=== PATIENT | male | born 1990 | race Caucasian/White ===

== ENCOUNTER 2019-08-12 06:04 | Emergency (ER) | payer MEDICAID, OTHER ==
[~2019-08-12] VITALS: Ht 188 cm; Wt 86.2 kg
[~2019-08-12 06:04] MED LIST: AMOX-426 PO; DIF100 PO; SACC250C3 PO
[2019-08-12 06:10] VITALS: BP_SYST 152
[2019-08-12 07:16] VITALS: BP_SYST 140
== END 2019-08-12 07:14 | disposition home or self-care (01) ==
LOC: SED 06:04
DX: K02.9 Dental caries, unspecified (principal); K08.89 Other specified disorders of teeth and supporting structures; F12.90 Cannabis use, unspecified, uncomplicated; Z79.899 Other long term (current) drug therapy
CPT/HCPCS: 99283

== ENCOUNTER 2021-02-13 23:58 | Emergency (ER) | payer OTHER ==
[~2021-02-13] VITALS: Ht 188 cm; Wt 95.3 kg
[2021-02-14 00:12] VITALS: BP_SYST 150
--- NOTE | 2021-02-14 01:17 | NUR ---
Patient to chair for evaluation
[2021-02-14] MEDS ORDERED: ONDANSETRON 4 MG ODT TAB ONE (01:42)
[2021-02-14] MEDS ORDERED: HYDROcodone/ACETAMIN 5-325 MG TAB (NORCO/ VICODIN) ONE (01:43)
--- NOTE | 2021-02-14 02:00 | NUR ---
PT COMING IN FOR PAIN AND BLEEDING TO 2 RIGHT LOWER MOLARS X 2 DAYS. HAS NOT SEEN DENTIST DUE TO NO DENTAL INSURANCE. DENIES FEVER, HAS BEEN FEELING NAUSEATED BUT NO VOMITING. DENIES ANY DISCHARGE TO TEETH ONLY BLEEDING. NO SWELLING NOTED TO FACE.
[2021-02-14] MEDS: ONDANSETRON 4 MG ODT TAB PO ONE (02:14)
[2021-02-14] MEDS ORDERED: AMOX-426 PO (02:25)
[2021-02-14] MEDS ORDERED: IBUP-1969 PO (02:25)
[2021-02-14] MEDS ORDERED: HYDR-3917 PO (02:25)
[2021-02-14] MEDS: HYDROcodone/ACETAMIN 5-325 MG TAB (NORCO/ VICODIN) PO ONE (02:29)
--- NOTE | 2021-02-14 02:30 | NUR ---
PAIN NOW 7-09/18
[2021-02-14 02:37] VITALS: BP_SYST 146
--- NOTE | 2021-02-14 02:38 | NUR ---
Patient given written and verbal discharge instructions and verbalizes understanding. ER MD discussed with patient the results and treatment provided. Patient in stable condition. ID arm band removed. Rx of AUGMENTIN, NORCO, AND MOTRIN given. Patient educated on pain management and to follow up with PMD. Pain Scale 6. Opportunity for questions provided and answered. Medication side effect fact sheet provided.
== END 2021-02-14 02:37 | disposition home or self-care (01) ==
LOC: SED 23:58
DX: K02.9 Dental caries, unspecified (principal); Z79.899 Other long term (current) drug therapy
CPT/HCPCS: 99283; Q0162

== ENCOUNTER 2023-06-21 07:00 | Emergency (ER) | payer OTHER ==
[~2023-06-21] VITALS: Ht 188 cm; Wt 79.4 kg
[~2023-06-21 07:00] MED LIST changes: +HYDR-3917 PO; +IBUP-1969 PO
[2023-06-21 07:11] VITALS: BP_SYST 127; PULSE 105; RESP 20; TEMP 97.5; O2SAT 97
[2023-06-21 07:30] VITALS: BP_SYST 127; PULSE 99; RESP 20; TEMP 97.6; O2SAT 98
[2023-06-21] MEDS: ACETAMINOPHEN 325 MG TABLET PO ONE (07:30)
== END 2023-06-21 08:19 ==
LOC: SED 07:00
DX: M25.532 Pain in left wrist (principal); M25.531 Pain in right wrist; F12.90 Cannabis use, unspecified, uncomplicated; F10.90 Alcohol use, unspecified, uncomplicated; Z79.899 Other long term (current) drug therapy; Z79.2 Long term (current) use of antibiotics; Z98.890 Other specified postprocedural states
CPT/HCPCS: 99283